=== PATIENT | male | born 1960 | race Caucasian/White ===

== ENCOUNTER 2016-11-13 20:45 | Emergency (ER) | payer OTHER ==
[~2016-11-13] VITALS: Ht 182.9 cm; Wt 71.9 kg
[2016-11-13 22:07] LABS: HEMATOCRIT 32.3 % (38.0-50.0); MCH 30.6 PG (29.0-34.0); MCHC 32.8 G/DL (30.0-36.0); MCV 93.4 FL (86-99); MEAN PLAT.VOLUME 10.9 uM^3 (9.0-12.4); NRBC (%) 0.5 /100 WBC (0-0); PLATELET COUNT 367 K/uL (156-360); RBC DIS.WIDTH-CV 16.4 % (11.8-14.6); RBC DIS.WIDTH-SD 56.2 % (39-53); RED BLOOD COUNT 3.46 M/uL (4.00-5.50); WHITE BLOOD COUNT 7.9 K/uL (4.1-10.2)
[2016-11-13 22:15] LABS: CHLORIDE 107 mEq/L (99-109); POTASSIUM 3.6 mEq/L (3.7-5.4); SODIUM 141 mEq/L (136-147)
[2016-11-13 22:16] LABS: GLUCOSE 96 mg/dL (70-99)
[2016-11-13 22:18] LABS: ANION GAP 15 MEQ/L (2-14)
[2016-11-13 22:20] LABS: GFR ESTIMATE (CALCULATED) > 59 mL/min/
[2016-11-13 22:21] LABS: UREA NITROGEN (BUN) 22 mg/dL (9-23)
[2016-11-13 22:27] LABS: TROP-I INTERPRETATION NEGATIVE; TROPONIN-I < 0.01 ng/mL (0.0-0.30)
[2016-11-13 23:05] LABS: ABS NEUTROPHIL COUNT 5.7; ANISOCYTOSIS 2+; ATYPICAL LYMPHOCYTE 0.9 %; BAND NEUTROPHILS 1.9 % (0-8.0); BASOPHILS 2.9 %; EOSINOPHIL ABS CT 0.2; EOSINOPHILS 1.9 % (0-5.0); INSTRUMENT ABS NEUTROPHIL CT 5.3 K/uL; LYMPHOCYTES 15.4 % (15.0-45.0); MACROCYTES 1+; METAMYELOCYTES 2.9 %; MICROCYTOSIS 1+; OVALOCYTES 1+; POIKILOCYTOSIS 1+; SEG.NEUTROPHILS 70.2 % (46.0-76.0); TEAR DROP CELLS 1+
[2016-11-14] MEDS ORDERED: LITE COAT ASPI325 M1 PO (00:08)
[2016-11-14 00:47] LABS: TROP-I INTERPRETATION NEGATIVE; TROPONIN-I < 0.01 ng/mL (0.0-0.30)
[2016-11-14 03:56] VITALS: BP 119/64
== END 2016-11-14 04:09 | disposition short-term general hospital (02) ==
LOC: EME → EDBD 20:45 → EME 11-14 01:55
PROVIDERS: Emergency Medicine
DX: R07.9 Chest pain, unspecified (principal); F17.200 Nicotine dependence, unspecified, uncomplicated; Z79.82 Long term (current) use of aspirin
CPT/HCPCS: 71010; 80048; 84484; 85025; 93005; 99281; 99285